=== PATIENT | female | born 2000 | race Caucasian/White ===

== ENCOUNTER 2022-04-28 08:46 | Outpatient (REF) | payer OTHER, SELFPAY ==
[2022-04-28 18:11] LABS: CT PCR DETECTED (Not Detect.); NG PCR NOT DETECTED (Not Detect.)
[2022-04-29 10:13] LABS: BV Int Neg Control Negative (Negative); BV Int Pos Control Positive (Positive)
== END 2022-04-28 08:47 | disposition home or self-care (01) ==
LOC: HO.LNP 08:46
PROVIDERS: Visit Provider Advanced Practice Midwife
DX: Z01.419 Encounter for gynecological examination (general) (routine) without abnormal findings (principal)
CPT/HCPCS: 87480; 87491; 87510; 87591; 87660; 88142

== ENCOUNTER 2022-08-09 11:08 | Outpatient (REF) | payer OTHER, SELFPAY ==
[2022-08-09 14:58] LABS: CT PCR NOT DETECTED (Not Detect.); NG PCR NOT DETECTED (Not Detect.)
== END 2022-08-09 11:09 | disposition home or self-care (01) ==
LOC: HO.LNP 11:08
PROVIDERS: PCP Internal Medicine; Visit Provider Advanced Practice Midwife
DX: Z20.2 Contact with and (suspected) exposure to infections with a predominantly sexual mode of transmission (principal)
CPT/HCPCS: 0353U

== ENCOUNTER 2023-05-26 09:50 | Outpatient (AMB) | payer OTHER, SELFPAY ==
--- NOTE | 2023-05-26 10:30 | MHC.OFFVIS ---
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 Doing well with no concerns. She tries to eat healthy and stays active with exercise. Regular monthly menses-on Apri. Currently is sexually active. She denies vaginal itching and irritation. STI screening offered; she accepts. Declines bloodwork. Denies family history of ovarian or colon cancer. Mother with a history of breast cancer. She believes she is BRCA2 negative. History of CIN1/HPV positive. She denies any contraindications to control such as: migraines with aura, history of DVT or pulmonary emboli, high blood pressure, liver disease, thrombolic disorders, Lupus, +FATOU, breast cancer, or smoking. [facility] Medical History LGSIL on Pap smear of cervix Dysmenorrhea in adolescent Surgical History No pertinent past surgical history Family History Father HTN (hypertension) Diabetes mellitus Substance use disorder Mental health disorder Mother Breast cancer, Onset Age: 43 H/O mastectomy History of chemotherapy Brother Medical history non-contributory Social History (Updated 05/26/23 @ 10:57 by Dorys Arrington CNM) Household Members: Family Housing: House Alcohol intake: current Alcohol intake frequency: holidays/special occasions only Patient Tobacco Use Status: Never used Tobacco e-Cigarette/Vaping Use: Never Used service: No Current occupational status: employed and student 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 Sexual orientation: Straight/Heterosexual Gender identity: Female Female Reproductive History Menstrual Age of Menarche: 11 Duration of menses: 6-7 days Date of last menstrual period: 05/03/23 control method: pills Total pregnancies: 0 Date of last pap smear: 04/29/22 (LGSIL CIN1) History of abnormal pap smear: Yes Review of Systems Const All systems reviewed & are unremarkable except as noted in HPI and below Reports as per HPI Eyes Reports no additional complaints ENT Reports no additional complaints Card Reports no additional complaints Resp Reports no additional complaints GI Reports as per HPI and Reports no additional complaints Reports as per HPI Musc Reports no additional complaints Skin/Breast Reports as per HPI Neuro Reports no additional complaints Psych Reports no additional complaints Endo Reports no additional complaints Ryder/Lymph Reports no additional complaints Aller/Immun Reports no additional complaints Physical Exam Vital Signs: Last Vital Signs BP 118/72 05/26/23 10:32 BMI result Body Mass Index 27.6 Const General: cooperative, healthy appearing, no acute distress, well developed and alert Orientation/consciousness: patient oriented x3 HEENT Head: Yes normal to inspection Eyes General: appearance normal, both eyes and all related structures Neck Neck: Yes normal visual inspection Thyroid: Thyroid normal Chest Chest palpation & inspection: normal inspection of the chest and other (no puckering, dimpling, peau de orange, retraction, discharge, masses) Breast/axilla inspection: normal inspection of the breasts Breast/axilla palpation: normal palpation of the breasts Resp Effort & Inspection: normal respiratory effort GI Inspection: Yes normal to inspection Palpation (GI): Soft to palpation Rectal Exam - Female: deferred General: Yes bladder normal to palpation External Female Exam: normal external appearance and normal appearance of the urethra Speculum Exam - Vagina: normal appearance of the vagina, normal palpation and normal vaginal discharge Speculum Exam - Cervix: normal appearance of the cervix, normal palpation and Other cervical findings present (Bled with Pap) Bimanual exam- vagina & uterus: normal bimanual exam, normal palpation, uterine size normal, bladder normal to palpation, normal palpation and non-tender Bimanual Exam- Adnexa, other: no masses Skin General skin exam: no rashes or lesions noted Rashes: no rashes Neuro General: patient oriented x3 Cognition (Neuro): normal cognition Extrem General: Yes normal to inspection Psych Attitude: cooperative Thought process: Normal thought process present Assessment & Plan Assessment & Plan (1) Encounter for well woman exam with routine gynecological exam: Code(s): Z01.419 - Encounter for gynecological examination (general) (routine) without abnormal findings (2) History of abnormal cervical Pap smear: Code(s): Z87.42 - Personal history of other diseases of the female genital tract Plan Discussed: Current recommendations for pap smears per ASCCP guidelines. Await results today for plan of care. Breast awareness and periodic breast exams. Discussed bracket testing offered referral to Dr. Castaneda, advised to reach out on patient portal if she desires to have the referral completed. Maintain a healthy lifestyle including a well balanced diet and routine exercise. control hormone use warnings: go to ER if and loss of vision, blindness, severe headache, chest pain or difficulty breathing, severe abdominal pain, or any pain or swelling in an extremity. All of her questions and concerns were addressed to the best of my ability. 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 Orders: Orders CT NG by PCR Today Z20.2 - Contact with and (suspected) exposure to infections with a predominantly sexual mode of transmission Pap Smear Today Z12.4 - Encounter for screening for malignant neoplasm of cervix Medications: Refilled norgestimate-ethinyl estradiol 0.25-35 mg-mcg (Estarylla) 1 tab PO DAILY 84 tabs 4RF L70.9 - Acne, unspecified, N94.6 - Dysmenorrhea, unspecified Coding Level of Care Code Est Pt Prev Care 18-39y(33783) Diagnoses Encounter for well woman exam with routine gynecological exam Z01.419 History of abnormal cervical Pap smear Z87.42
[2023-05-26 10:32] VITALS: BP 118/72; BMI 27.6
== END 2023-05-26 11:17 | disposition home or self-care (01) ==
PROVIDERS: Visit Provider Advanced Practice Midwife
DX: Z01.419 Encounter for gynecological examination (general) (routine) without abnormal findings (principal); Z87.42 Personal history of other diseases of the female genital tract
CPT/HCPCS: 99395

== ENCOUNTER 2023-05-26 09:50 | Outpatient (REF) | payer OTHER, SELFPAY ==
[2023-05-26 14:36] LABS: CT PCR NOT DETECTED (Not Detect.); NG PCR NOT DETECTED (Not Detect.)
[2023-06-03 03:48] LABS: HPV mRNA E6/E7 rflx Not Detected (Not Detected)
== END 2023-05-26 09:51 | disposition home or self-care (01) ==
LOC: HO.LNP 09:50
PROVIDERS: Visit Provider Advanced Practice Midwife
DX: Z01.419 Encounter for gynecological examination (general) (routine) without abnormal findings (principal); Z20.2 Contact with and (suspected) exposure to infections with a predominantly sexual mode of transmission; Z87.42 Personal history of other diseases of the female genital tract
CPT/HCPCS: 0353U; 87624; 88142

== ENCOUNTER 2023-07-15 11:16 | Outpatient (AMB) | payer OTHER, SELFPAY ==
--- NOTE | 2023-07-15 11:30 | MHC.PC.OV ---
Vital Signs 07/15/23 11:31 Height 5 ft 5 in Weight 167 lb BMI 27.8 BP 110/72 Blood Pressure Location Lt brachial Position Sitting Pulse 98 Pulse Source Pulse Oximeter Pulse Oximetry (%) 98 Oxygen Delivery Method Room Air Intake Visit Reasons: Constipation Intake Note: Pt is here today c/o constipation on and off Allergies No Known Allergies Allergy (Verified 07/15/23 11:37) Medication List - Last Reconciled 07/15/23 by Jess Bennett MD norgestimate-ethinyl estradiol 0.25-35 mg-mcg (Estarylla) 1 tab PO DAILY Tobacco use date assessed: 07/15/23 Dental Screening Dental Screen Date: 07/15/23 Did you have a dental visit in the last 12 months?: Yes Did you have a dental problem in the last 6 months where you did not have access to dental care?: No Was dental information given to patient?: Patient has dentist HPI Constipation HPI Details 43-year-old lady here today complaining of intermittent episodes of constipation, passing hard stool , no blood in stool seen. Has been present now for the last several weeks. States that she has been drinking plenty of fluids, and has increased dietary fiber intake. [facility] Medical History (Updated 07/17/23 @ 22:33 by Jess Bennett MD) Constipation LGSIL on Pap smear of cervix Dysmenorrhea in adolescent Surgical History No pertinent past surgical history Family History Father HTN (hypertension) Diabetes mellitus Substance use disorder Mental health disorder Mother Breast cancer, Onset Age: 43 H/O mastectomy History of chemotherapy Brother Medical history non-contributory Social History Household Members: Family Housing: House Alcohol intake: current Alcohol intake frequency: holidays/special occasions only Patient Tobacco Use Status: Never used Tobacco e-Cigarette/Vaping Use: Never Used service: No Current occupational status: employed and student 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 1. Little interest or pleasure in doing things: not at all 2. Feeling down, depressed, or hopeless: not at all 3. Trouble falling or staying asleep, or sleeping too much: not at all 4. Feeling tired or having little energy: not at all 5. Poor appetite or overeating: not at all 6. Feeling bad about yourself - or that you are a failure or have let yourself or your family down: not at all 7. Trouble concentrating on things, such as reading the newspaper or watching television: not at all 8. Moving or speaking so slowly that other people could have noticed. Or the opposite - being so fidgety or restless that you have been moving around a lot more than usual: not at all 9. Thoughts that you would be better off or of hurting yourself in some way: not at all Total score: 0 Depression Screening Interpretation: Negative Depression Screening Done: Yes 95818 - PHQ-9 Billing: Yes Source: Developed by Drs. Zeke Zimmer, Yeni Tello, Campos Travis and colleagues, with an educational kvng from [employer]. Thrive Questionnaire Date Thrive assessed: 07/15/23 I am a: Patient What is your living situation today?: I have a steady place to live Within the past 12 months, did the food you bought not last and you didn't have the money to get more?: Never true Within the past 12 months, did you worry whether your food would run out before you got money to buy more?: Never true Do you have trouble paying for medicines?: No Do you have trouble getting transportation to medical appointments?: No Do you have trouble paying your heating and electricity bill?: No Do you have trouble taking care of your child, family member or friend?: No Do you have trouble with day-to-day activities such as bathing, preparing meals, shopping, managing finances, etc.?: No Are you currently unemployed and looking for a job?: No Are you interested in more education?: No THRIVE Score: 0 AUDIT C Alcohol Use Questionnaire (AUDIT-C) 1. How often do you have a drink containing alcohol?: Monthly or less 2. How many drinks containing alcohol do you have on a typical day when you are drinking?: 1 or 2 3. How often do you have six or more drinks on one occasion?: Never Total Score: 1 AMY-7 AMB Questionnaire AMY-7 Date AMY - 7 assessed: 07/15/23 Feeling nervous, anxious, or on edge: 0 = Not at all Not being able to stop or control worryin = Not at all Worrying too much about different things: 0 = Not at all Trouble relaxin = Not at all Being so restless that it is hard to sit still: 0 = Not at all Becoming easily annoyed or irritable: 0 = Not at all Feeling afraid as if something awful might happen: 0 = Not at all Total AMY-7 score (0-4 normal; 5-9 mild; 10-14 moderate; 15-21 severe): 0 Source: Developed by Drs. Zeke Zimmer, Yeni Tello, Campos Travis and colleagues, with an educational kvng from [employer]. AMY-7 Assessment Billing AMY-7 Assessment Tool: AMY-7 Assessment 85971 Review of Systems Const All systems reviewed & are unremarkable except as noted in HPI and below Reports as per HPI Eyes Reports no additional complaints ENT Reports no additional complaints Card Reports no additional complaints Resp Reports no additional complaints GI Reports as per HPI Reports as per HPI Musc Reports no additional complaints Skin/Breast Reports as per HPI Neuro Reports no additional complaints Psych Reports no additional complaints Endo Reports no additional complaints Ryder/Lymph Reports no additional complaints Aller/Immun Reports no additional complaints Physical exam (Primary Care) Vital Signs: Last Vital Signs Pulse 98 07/15/23 11:31 BP 110/72 07/15/23 11:31 Pulse Ox 98 07/15/23 11:31 Oxygen Delivery Method Room Air 07/15/23 11:31 BMI result Body Mass Index 27.8 Tobacco/Smoking Status: Tobacco use Status Tobacco use date assessed 07/15/23 07/15/23 11:35 Patient Tobacco Use Status Never used Tobacco 07/15/23 11:35 e-Cigarette/Vaping Use Never Used 07/15/23 11:35 PHQ-9: PHQ-9 Score PHQ-9: Total score 0 07/15/23 11:40 Depression Screening Interpretation: Negative Thrive Assessment: Date of Thrive Assessment Date Thrive assessed 07/15/23 07/15/23 11:39 Const General: healthy appearing, comfortable and no acute distress Nutritional Appearance: average body habitus Orientation/consciousness: patient oriented x3 HENMT Head: Yes normal to inspection Ears: external ears normal General nose exam: Normal external nose present Face and sinus: Yes face symmetric Mouth: Normal oral and palatal mucosa present and moist mucous membranes Neck Neck: Yes full ROM, Yes no lymphadenopathy and Yes supple Thyroid: Thyroid normal Resp Effort & Inspection: normal respiratory effort and able to speak in complete sentences Auscultation: clear to auscultation bilaterally Cardio Palpation: normal PMI Rate: regular rate Rhythm: regular rhythm Heart sounds: S1 normal heart sound present and S2 normal heart sound present Peripheral pulses: Peripheral pulses 2+ throughout GI Inspection: Yes normal to inspection Palpation (GI): Soft to palpation, nontender, no guarding and no masses Auscultation: normal bowel sounds General: Yes no CVA tenderness and Yes deferred Back/Spine/Pelvis Back: no CVA tenderness and No back tenderness Skin General skin exam: no rashes or lesions noted Neuro General: patient oriented x3, gait normal, tone normal, moves all extremities, Normal light touch and pain sensation and CN's II-XI intact bilaterally Extrem General: Yes normal to inspection, Yes full ROM, Yes no joint enlargement, Yes no pedal edema, Yes no calf tenderness and Yes normal gait Psych Appearance: grossly normal Mental Status: mental status grossly normal Speech and movement: Normal speech and movement present Affect: normal affect Attitude: cooperative Thought process: Normal thought process present Thought content: Normal thought content present Assessment and Plan Assessment & Plan (1) Constipation: Code(s): K59.00 - Constipation, unspecified Qualifiers: Constipation type: unspecified constipation type Qualified Code(s): K59.00 - Constipation, unspecified Plan: Prescription sent for docusate sodium 100 mg per capsule to take 1-2 capsules once a day., continue with increase dietary fiber intake, adequate hydration and regular exercise. May take an occasional Senokot S if after 2 days no regular bowel movements. Call if no improvement of symptoms Orders: Orders Complete Blood Count Auto Diff 07/15/23 K59.00 - Constipation, unspecified, Z13.1 - Encounter for screening for diabetes mellitus, Z13.220 - Encounter for screening for lipoid disorders, Z83.3 - Family history of diabetes mellitus, Z83.49 - Family history of other endocrine, nutritional and metabolic diseases Vitamin D 25-OH Total 07/15/23 K59.00 - Constipation, unspecified, Z13.1 - Encounter for screening for diabetes mellitus, Z13.220 - Encounter for screening for lipoid disorders, Z83.3 - Family history of diabetes mellitus, Z83.49 - Family history of other endocrine, nutritional and metabolic diseases Lipid Panel 07/15/23 K59.00 - Constipation, unspecified, Z13.1 - Encounter for screening for diabetes mellitus, Z13.220 - Encounter for screening for lipoid disorders, Z83.3 - Family history of diabetes mellitus, Z83.49 - Family history of other endocrine, nutritional and metabolic diseases Basic Metabolic Panel Fasting 07/15/23 K59.00 - Constipation, unspecified, Z13.1 - Encounter for screening for diabetes mellitus, Z13.220 - Encounter for screening for lipoid disorders, Z83.3 - Family history of diabetes mellitus, Z83.49 - Family history of other endocrine, nutritional and metabolic diseases TSH reflex Free T4 07/15/23 K59.00 - Constipation, unspecified, Z13.1 - Encounter for screening for diabetes mellitus, Z13.220 - Encounter for screening for lipoid disorders, Z83.3 - Family history of diabetes mellitus, Z83.49 - Family history of other endocrine, nutritional and metabolic diseases Medications: New docusate sodium 100 mg PO DAILY 90 tabs 0RF Constipation Coding Level of Care Code Est Pt Level 3 (77710) Diagnoses Constipation, unspecified constipation type K5. Constipation type: unspecified constipation type Additional Codes AMY-7 Assessment Billing - AMY-7 Assessment Tool: AMY-7 Assessment 81433 ([id number])
[2023-07-15 11:31] VITALS: BP 110/72; PULSE 98; O2SAT 98; BMI 27.8
== END 2023-07-15 12:07 | disposition home or self-care (01) ==
PROVIDERS: PCP Internal Medicine; Visit Provider Internal Medicine
DX: K59.00 Constipation, unspecified (principal)
CPT/HCPCS: 99213

== ENCOUNTER 2023-07-15 11:48 | Outpatient (REF) | payer OTHER, SELFPAY ==
[2023-07-15 13:11] LABS: MANUAL DIFF FLAG NO
[2023-07-15 13:26] LABS: Basophils Percent Auto 0.3 % (0-2); Eosinophils Absolute Auto 0.3 X10*3/uL (0.0-0.4); Eosinophils Percent Auto 3.9 % (0-4); Hematocrit 40.9 % (37.0-47.0); Hemoglobin 13.3 g/dl (12.0-16.0); Lymphocytes Absolute Auto 2.5 X10*3/uL (1.2-4.9); Lymphocytes Percent Auto 38.4 % (20-40); Mean Corpuscular HGB Conc 32.5 g/dl (31.0-35.0); Mean Corpuscular Hemoglobin 28.9 pg (27.0-33.0); Mean Corpuscular Volume 88.9 fL (80.0-98.0); Monocytes Absolute Auto 0.5 X10*3/uL (0.1-1.2); Neutrophils Absolute Auto 3.2 x10*3/uL (2.0-8.3); Neutrophils Percent Auto 49.4 % (45-73); Platelet Count 227 X10*3/uL (160-400); Red Cell Distribution Width 12.9 % (11.0-16.0); White Blood Count 6.5 X10*3/uL (4.8-10.8)
[2023-07-15 14:15] LABS: Anion Gap 11 (12-20); Blood Urea Nitrogen 9 mg/dL (9-16); Calcium 9.1 mg/dL (8.4-10.2); Carbon Dioxide 24 mmol/L (22-29); Chloride 107 mmol/L (96-108); Cholesterol 167 mg/dL (<200); Estimated Glomerular Filt Rate > 60; Glucose Fasting 89 mg/dL (60-99); HDL Cholesterol 71 mg/dL (>40); LDL Cholesterol Calculated 77 mg/dL (<100); Potassium 3.9 mmol/L (3.3-5.1); Sodium 138 mmol/L (135-145); Triglycerides 95 mg/dL (<150)
[2023-07-15 14:35] LABS: TSH reflex Free T4 4.55 uIU/mL (0.32-4.0); Vitamin D 25-OH Total 80.5 ng/mL (>30)
== END 2023-07-15 11:49 | disposition home or self-care (01) ==
LOC: HO.HMGCLDS 11:48
PROVIDERS: PCP Internal Medicine; Visit Provider Internal Medicine
DX: Z13.220 Encounter for screening for lipoid disorders (principal); Z13.1 Encounter for screening for diabetes mellitus; K59.00 Constipation, unspecified; Z83.3 Family history of diabetes mellitus; Z83.49 Family history of other endocrine, nutritional and metabolic diseases
CPT/HCPCS: 36415; 80048; 80061; 82306; 84439; 84443; 85025

== ENCOUNTER → 2024-07-24 14:53 | Outpatient (BNVA) | payer OTHER, SELFPAY | PROVIDERS: PCP Internal Medicine; Visit Provider Advanced Practice Midwife ==

== ENCOUNTER 2024-08-23 08:08 | Outpatient (REF) | payer OTHER, SELFPAY ==
--- OUTSIDE RECORDS SUMMARY | 2024-08-23 08:17 | XMS_ITS | Clinical Summary ---
Author Organization [facility] Address [address] [place] [address] Care Team Providers Care Grid Inspector Name Role Phone Pcp, No Primary Care Provider [phone] Social History Tobacco Use Types Packs/Day Years Used Date Smoking Tobacco: Never Assessed Comments Unknown Sex and Gender Information Value Date Recorded Sex Assigned at Not on file Legal Sex Female 9:24 PM EST Gender Identity Not on file Sexual Orientation Not on file Plan of Treatment Health Maintenance Due Date Last Done Comments Depression: Screening Annually using PHQ-2/9 in Adults 18 yrs or above (or HM Modifier)([facility]) 2018 Hepatitis C Virus Infection in Adolescents and Adults: Screening (or Modifier) ([facility]) 2018 SDOH Screening Reminder: Annually for all adults ([facility]) 2018 Tobacco Smoking Cessation: i n Adults excluding Women: Behavioral and Pharmacotherapy Interventions ([facility]) 2018 Lipid Screening: Once for Women aged 20 to 45 yrs ([facility]) 2020 Cervical Cancer Screenin-65 yrs of age (or Modifier) 2021 Cervical Cancer Screening: Pap every 3 yrs pts age 21-65 2021 Cervical Cancer: Pap Screening with Modifier timing ([facility]) 2021 Cervical Cancer: hrHPV alone or with cotesting Pap for Pts 30-65yrs screening every 5yrs ([facility]) 2021 DTaP/Tdap/Td Vaccines ([facility]) (7 - Td or Tdap) 12/08/2021 12/09/2011, 07/08/2004, 12/11/2001, Additional history exists Flu Vaccination: Yearly for ages 18mos through 64 years (or Modifier)([facility]) 01/12/2024 COVID-19 Vaccine Screening: Initial Series and Booster Status ([facility]) (2023- season) 2024 Zoster/Shingles Vaccine Series Screening: Adults aged 18+ yrs (or HM Modifiers)([facility]) (1 of 2) 2050 09/26/2007, 06/15/2001 Pneumococcal Vaccination Screening: Pts 0-19 & 19-64 yrs of age ([facility]) Aged Out 01/24/2001, 2000, 2000 No longer eligible based on patient's age to complete this topic Medical Devices Not on file Insurance [facility] Care Teams Grid Inspector Relationship Specialty Start Date End Date Pcp, Stephanie PCP - General Family Medicine 06/30/21
[2024-08-23 10:30] LABS: Anion Gap 11 (12-20); Blood Urea Nitrogen 12 mg/dL (9-16); Calcium 9.1 mg/dL (8.4-10.2); Carbon Dioxide 21 mmol/L (22-29); Chloride 112 mmol/L (96-108); Estimated Glomerular Filt Rate > 60; Glucose Fasting 97 mg/dL (60-99); Potassium 3.9 mmol/L (3.3-5.1); Sodium 140 mmol/L (135-145)
[2024-08-23 10:48] LABS: Free T4 (Free Thyroxine) 0.99 ng/dL (0.71-1.85); Thyroid Stimulating Hormone 6.13 uIU/mL (0.32-4.0)
[2024-08-25 05:23] LABS: Thyroid Peroxidase Antibodies <1 IU/mL (<9)
== END 2024-08-23 08:09 | disposition home or self-care (01) ==
LOC: HO.HMGCLDS 08:08
PROVIDERS: PCP Internal Medicine; Visit Provider Internal Medicine
DX: K59.00 Constipation, unspecified (principal); R79.89 Other specified abnormal findings of blood chemistry
CPT/HCPCS: 36415; 80048; 84439; 84443; 86376

== ENCOUNTER 2024-08-24 11:40 | Outpatient (AMB) | payer OTHER, SELFPAY ==
--- NOTE | 2024-08-24 11:41 | AM.OFFWIN_ITS ---
Intake Vital Signs 08/24/24 11:44 Weight 157 lb BP 122/80 Blood Pressure Location Lt brachial Position Sitting Pulse 111 H Pulse Source Pulse Oximeter Pulse Oximetry (%) 100 Oxygen Delivery Method Room Air Intake Visit Reasons: EP fatigue, constipation, eczema on hands Intake Note: Patient here for fatigue and constipation that has been going on for over 2 years. Patient Tobacco Use Status: Never used Tobacco Allergies No Known Allergies Allergy (Verified 08/24/24 11:44) Do you need a note to return to daycare/school/sports/work: No HPI HPI Comments History of Present Illness Details This is a 24-year-old female who presented to the walk-in clinic for follow-up on lab results. She is a patient of Dr. Bennett. She has been complaining of chronic constipation for the past 2 years. She states she has about 1-2 bowel movements weekly. She states her bowel movements are small and hard when she does have bowel movements. She denies any melena or hematochezia. She states she does develop abdominal discomfort in between her bowel movements but denies any nausea/vomiting. Patient has tried increased fiber including fiber rich foods and psyllium husk, increased hydration/fluid intake, increase physical activity, as well as multiple bzeh-fms-xkojssg medications such as docusate, senna, etc. Patient was noted to have an elevated TSH in 07/2023 but her PCP wanted to watch/monitor prior to starting medications. She had follow- up labs yesterday, which showed an increasing TSH. She has an appointment on 09/25/2024 for follow-up on chronic constipation. Patient presented to the walk-in clinic today hoping to get started on thyroid medications. [facility] Medical History (Updated 08/08/24 @ 12:32 by Jess Bennett MD) Elevated TSH Constipation LGSIL on Pap smear of cervix Dysmenorrhea in adolescent Surgical History No pertinent past surgical history Family History Father HTN (hypertension) Diabetes mellitus Substance use disorder Mental health disorder Mother Breast cancer, Onset Age: 43 H/O mastectomy History of chemotherapy Brother Medical history non-contributory Social History Household Members: Family Housing: House Alcohol intake: current Alcohol intake frequency: holidays/special occasions only Patient Tobacco Use Status: Never used Tobacco e-Cigarette/Vaping Use: Never Used service: No Current occupational status: employed and student 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 Sexual orientation: Straight/Heterosexual Gender identity: Female Cognitive needs: No Hearing needs: No Vision needs: Yes Female Reproductive History Menstrual Age of Menarche: 11 Review of Systems Const All systems reviewed & are unremarkable except as noted in HPI and below Reports no additional complaints Eyes Reports no additional complaints ENT Reports no additional complaints Card Reports no additional complaints Resp Reports no additional complaints GI Reports no additional complaints Reports no additional complaints Musc Reports no additional complaints Skin/Breast Reports system reviewed and no additional complaints, except as documented Neuro Reports no additional complaints Psych Reports no additional complaints Endo Reports no additional complaints Ryder/Lymph Reports no additional complaints Aller/Immun Reports no additional complaints Physical Exam Vital Signs: Last Vital Signs Pulse 111 H 08/24/24 11:44 BP 122/80 08/24/24 11:44 Pulse Ox 100 08/24/24 11:44 Oxygen Delivery Method Room Air 08/24/24 11:44 Const Other: Vital signs reviewed. Constitutional: Non-toxic appearing. No acute distress. Well-developed and well-nourished. HEENT: Normocephalic and atraumatic. Skin: Warm and dry. No rashes or lesions noted. Neck: Full and painless range of motion. No cervical lymphadenopathy. Cardio: Regular rate and rhythm. No murmurs, gallops, or rubs. No lower extremity edema. No JVD. Pulmonary: No respiratory distress. No accessory muscle usage. Clear to auscultation bilaterally without wheezing, crackles, or rhonchi. Gastrointestinal: Soft, nontender, and nondistended in all 4 quadrants. Normoactive bowel sounds in all 4 quadrants. Musculoskeletal: Normal range of motion in joints throughout the body. No deformity or other signs of injury. Neuro: Alert and oriented x4. Cranial nerves 2-12 grossly intact. No focal deficits appreciated. Psych: Normal mood and affect. Assessment & Plan Assessment & Plan (1) Elevated TSH: Code(s): R79.89 - Other specified abnormal findings of blood chemistry (2) Chronic constipation: Code(s): K59.09 - Other constipation Plan This is a 24-year-old female who presented to the walk-in clinic for follow-up on lab results and chronic constipation. Patient was found to have an elevated TSH to 6.13, which is increased from 4.55 in 07/2023. Patient was hoping to get started on thyroid medications today. I explained to the patient that we do not typically start chronic medication such as levothyroxine at the walk-in clinic and this would need to be discussed with her primary care physician. She has an appointment with her primary care physician on 09/25/2024; however, this is for follow-up on chronic constipation rather than lab review. We scheduled her a sooner telehealth appointment with her primary care physician on 09/07/2024 for lab review and she was encouraged to bring up her concerns to her PCP at that appointment. She was instructed to continue with increased fiber, increase hydration/fluid, increased physical activity, as well as ebsy-jsh-ieldlzt medications for severe constipation. She was advised to proceed directly to the emergency room if she were to develop obstipation, nausea/vomiting, or abdominal distention. Patient verbalized understanding and is agreeable with the plan. Coding Level of Care Code Est Pt Level 3 (67544) Diagnoses Elevated TSH R79.89 Chronic constipation K59.09
[2024-08-24 11:44] VITALS: BP 122/80; PULSE 111; O2SAT 100
== END 2024-08-24 12:19 | disposition home or self-care (01) ==
PROVIDERS: PCP Internal Medicine; Visit Provider Physician Assistant Medical
DX: R79.89 Other specified abnormal findings of blood chemistry (principal); K59.09 Other constipation

== ENCOUNTER 2024-09-07 08:12 | Outpatient (AMB) | payer OTHER, SELFPAY ==
--- NOTE | 2024-09-07 08:10 | MHC.PC.OV ---
Intake Visit Reasons: lab review Intake Note: Pt is having a telehealt visit for her lab results Allergies No Known Allergies Allergy (Verified 09/07/24 08:33) Medication List - Last Reconciled 09/07/24 by Jess Bennett MD etonogestrel-ethinyl estradiol 0.12-0.015 mg/24 hr (NuvaRing) 1 vag ring vaginal Q4W 3 weeks Tobacco use date assessed: 09/07/24 Dental Screening Dental Screen Date: 09/07/24 Did you have a dental visit in the last 12 months?: Yes Did you have a dental problem in the last 6 months where you did not have access to dental care?: No Was dental information given to patient?: Patient has dentist HPI lab review HPI Details 24-year-old lady here today for follow-up via telehealth. She has been having irregular bowel movements, mainly constipation over the last several months, feeling tired all the time, and dry skin in both hands, positive family history of thyroid disorder. Had recent fasting labs done which showed higher TSH as compared to last check, with free T4 low normal limits.. [facility] Medical History Elevated TSH Constipation LGSIL on Pap smear of cervix Dysmenorrhea in adolescent Surgical History No pertinent past surgical history Family History Father HTN (hypertension) Diabetes mellitus Substance use disorder Mental health disorder Mother Breast cancer, Onset Age: 43 H/O mastectomy History of chemotherapy Brother Medical history non-contributory Social History Household Members: Family Housing: House Alcohol intake: current Alcohol intake frequency: holidays/special occasions only Patient Tobacco Use Status: Never used Tobacco e-Cigarette/Vaping Use: Never Used service: No Current occupational status: employed and student 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 1. Little interest or pleasure in doing things: not at all 2. Feeling down, depressed, or hopeless: not at all 3. Trouble falling or staying asleep, or sleeping too much: not at all 4. Feeling tired or having little energy: not at all 5. Poor appetite or overeating: not at all 6. Feeling bad about yourself - or that you are a failure or have let yourself or your family down: not at all 7. Trouble concentrating on things, such as reading the newspaper or watching television: not at all 8. Moving or speaking so slowly that other people could have noticed. Or the opposite - being so fidgety or restless that you have been moving around a lot more than usual: not at all 9. Thoughts that you would be better off or of hurting yourself in some way: not at all Total score: 0 Depression Screening Interpretation: Negative Depression Screening Done: Yes 37907 - PHQ-9 Billing: Yes Source: Developed by Drs. Zeke Zimmer, Yeni Tello, Campos Travis and colleagues, with an educational kvng from [employer]. Thrive Questionnaire Date Thrive assessed: 09/07/24 I am a: Patient What is your living situation today?: I have a steady place to live Within the past 12 months, did the food you bought not last and you didn't have the money to get more?: Never true Within the past 12 months, did you worry whether your food would run out before you got money to buy more?: Never true Do you have trouble paying for medicines?: No Do you have trouble getting transportation to medical appointments?: No Do you have trouble paying your heating and electricity bill?: No Do you have trouble taking care of your child, family member or friend?: No Do you have trouble with day-to-day activities such as bathing, preparing meals, shopping, managing finances, etc.?: No Are you currently unemployed and looking for a job?: No Are you interested in more education?: No THRIVE Score: 0 AUDIT C Alcohol Use Questionnaire (AUDIT-C) 2. How many drinks containing alcohol do you have on a typical day when you are drinking?: 1 or 2 3. How often do you have six or more drinks on one occasion?: Never Total Score: 0 AMY-7 AMB Questionnaire AMY-7 Date AMY - 7 assessed: 09/07/24 Feeling nervous, anxious, or on edge: 0 = Not at all Not being able to stop or control worryin = Not at all Worrying too much about different things: 0 = Not at all Trouble relaxin = Not at all Being so restless that it is hard to sit still: 0 = Not at all Becoming easily annoyed or irritable: 0 = Not at all Feeling afraid as if something awful might happen: 0 = Not at all Total AMY-7 score (0-4 normal; 5-9 mild; 10-14 moderate; 15-21 severe): 0 Source: Developed by Drs. Zeke Zimmer, Yeni Tello, Campos Travis and colleagues, with an educational kvng from [employer]. AMY-7 Assessment Billing AMY-7 Assessment Tool: AMY-7 Assessment 22235 Review of Systems Const Reports fatigue, Denies headache(s), Denies malaise and Denies weakness Eyes Denies change in vision ENT Denies headache(s) Card Reports no additional complaints Resp Reports no additional complaints GI Reports as per HPI Reports no additional complaints Musc Reports no additional complaints Skin/Breast Reports as per HPI Neuro Denies headache(s) and Denies weakness Psych Reports no additional complaints Endo Reports fatigue Ryder/Lymph Reports no additional complaints Physical exam (Primary Care) Tobacco/Smoking Status: Tobacco use Status Tobacco use date assessed 09/07/24 09/07/24 08:11 Patient Tobacco Use Status Never used Tobacco 09/07/24 08:11 e-Cigarette/Vaping Use Never Used 09/07/24 08:11 PHQ-9: PHQ-9 Score PHQ-9: Total score 0 09/07/24 08:12 Depression Screening Interpretation: Negative Thrive Assessment: Date of Thrive Assessment Date Thrive assessed 09/07/24 09/07/24 08:12 Telehealth Telehealth Telehealth Platform: [facility] Location of provider rendering services: practice address Location of patient: address on file Patient Identification confirmed using: Name, : Yes Telehealth method: video Patient verbally consented to treatment: Yes Patient verbally consented to billing insurance company: Yes Patient informed of any privacy concerns related to visit: Yes Minutes spent on Phone/Video with Pt.: 15 Results Reviewed Results Reviewed: Name: Emilie Spangler Age/Sex: 24/F : 2000 Unit#: [id number] Attend Dr: Jess Bennett MD Re08/23/24 Status: DEP REF Location: [facility] Disch: SPEC : [id number] CHAYA: 08/23/24 STATUS: COMP REQ : [id number] RECD: 08/23/24-[address]: Jess Bennett MD COMP: 08/23/24 ENTERED: 08/23/[address]: ORDERED: Met Prof Fast, Free T4, TSH Test Result Flag Reference Sodium 140 135-145 mmol/L Potassium 3.9 3.3-5.1 mmol/L CL 112 H 96-108 mmol/L CO2 21 L 22-29 mmol/L Gap 11 L 12-20 BUN 12 9-16 mg/dL Creat 0.87 0.5-1.4 mg/dL eGFR > 60 Chronic Kidney Disease: Estimated GFR < 60 mL/min/1.73m2 Severe Kidney Disease: Estimated GFR < 15 mL/min/1.73m2 FBS 97 60-99 mg/dL CA 9.1 8.4-10.2 mg/dL Free T4 0.99 0.71-1.85 ng/dL TSH 3rd Gen. 6.13 H 0.32-4.0 uIU/mL Note: A sustained TSH level above 2.5 uIU/mL may warrant further investigation. TSH 3rd Generation ([facility]) Coding Level of Care Code Tele Est Pt Level 3 (78271) Diagnoses Elevated TSH R79.89 Additional Codes PHQ-9 - 45403 - PHQ-9 Billing: Yes ([id number]) AMY-7 Assessment Billing - AMY-7 Assessment Tool: AMY-7 Assessment 63144 ([id number]) Assessment & Plan Assessment & Plan (1) Elevated TSH: Code(s): R79.89 - Other specified abnormal findings of blood chemistry Category: Medical Plan: Started on low-dose levothyroxine 25 mcg per tablet to take once a day , take an hour before breakfast . Will repeat another TSH free T4 and thyroid peroxidase antibody in October Orders: Orders Thyroid Stimulating Hormone 10/27/24 R7. - Other specified abnormal findings of blood chemistry Free T4 (Free Thyroxine) 10/27/24 - Other specified abnormal findings of blood chemistry Thyroid Peroxidase Antibodies 10/27/24 - Other specified abnormal findings of blood chemistry Medications: New levothyroxine Take once a day in a.m. 1 hour before breakfast 25 mcg PO DAILY 30 tabs 2RF
== END 2024-09-07 09:38 | disposition home or self-care (01) ==
LOC: HO.HMCC 08:12
PROVIDERS: PCP Internal Medicine; Visit Provider Internal Medicine
DX: R79.89 Other specified abnormal findings of blood chemistry (principal)

== ENCOUNTER → 2024-09-07 08:12 | Outpatient (BNVA) | payer OTHER, SELFPAY | PROVIDERS: PCP Internal Medicine; Visit Provider Internal Medicine | DX: R94.6 Abnormal results of thyroid function studies (principal) | CPT/HCPCS: 96127 ==

== ENCOUNTER 2024-10-04 15:24 | Outpatient (AMB) | payer OTHER, SELFPAY ==
[2024-10-04 15:34] VITALS: BP 120/60; BMI 26.6
--- NOTE | 2024-10-04 15:34 | A.OFFVIS_ITS ---
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 Doing well with no tunnel elastic operator chainstitch concerns. Reports some breakthrough bleeding when using the ring [id number]-tq-gnlm cycling, has resolved. Currently is sexually active. She denies vaginal itching and irritation. STI screening offered; she accepts. She tries to eat healthy and stays active with exercise. Denies family history of ovarian or colon cancer. FH breast cancer-mother, BRCA negative. Last pap smear 2022, negative, history of KELLI 1/HPV+ 2021. [facility] Medical History Elevated TSH Constipation LGSIL on Pap smear of cervix Dysmenorrhea in adolescent Surgical History No pertinent past surgical history Family History Father HTN (hypertension) Diabetes mellitus Substance use disorder Mental health disorder Mother Breast cancer, Onset Age: 43 H/O mastectomy History of chemotherapy Brother Medical history non-contributory Social History Household Members: Family Housing: House Alcohol intake: current Alcohol intake frequency: holidays/special occasions only Patient Tobacco Use Status: Never used Tobacco e-Cigarette/Vaping Use: Never Used service: No Current occupational status: employed and student 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 Sexual orientation: Straight/Heterosexual Gender identity: Female Cognitive needs: No Hearing needs: No Vision needs: Yes Female Reproductive History Menstrual Age of Menarche: 11 control method: vaginal ring Total pregnancies: 0 Date of last pap smear: 05/26/23 (neg pap and hpv) History of abnormal pap smear: Yes (05/04 lgsil +hpv) History of STI: Yes (05/04 +chl) Review of Systems Const All systems reviewed & are unremarkable except as noted in HPI and below Reports as per HPI Eyes Reports no additional complaints ENT Reports no additional complaints Card Reports no additional complaints Resp Reports no additional complaints GI Reports as per HPI and Reports no additional complaints Reports as per HPI Musc Reports no additional complaints Skin/Breast Reports as per HPI Neuro Reports no additional complaints Psych Reports no additional complaints Endo Reports no additional complaints Ryder/Lymph Reports no additional complaints Aller/Immun Reports no additional complaints Physical Exam Vital Signs: Last Vital Signs BP 120/60 10/04/24 15:34 BMI result Body Mass Index 26.6 Const General: cooperative, healthy appearing, no acute distress, well developed and alert Orientation/consciousness: patient oriented x3 HEENT Head: Yes normal to inspection Eyes General: appearance normal, both eyes and all related structures Neck Neck: Yes normal visual inspection Thyroid: Thyroid normal Chest Chest palpation & inspection: normal inspection of the chest and other (no puckering, dimpling, peau de orange, retraction, discharge, masses) Breast/axilla inspection: normal inspection of the breasts Breast/axilla palpation: normal palpation of the breasts Resp Effort & Inspection: normal respiratory effort GI Inspection: Yes normal to inspection Palpation (GI): Soft to palpation Rectal Exam - Female: deferred General: Yes bladder normal to palpation External Female Exam: normal external appearance and normal appearance of the urethra Speculum Exam - Vagina: normal appearance of the vagina, normal palpation and normal vaginal discharge Speculum Exam - Cervix: normal appearance of the cervix, normal palpation and Other cervical findings present (Bled slightly with Pap) Bimanual exam- vagina & uterus: normal bimanual exam, normal palpation, uterine size normal, bladder normal to palpation, normal palpation and non-tender Bimanual Exam- Adnexa, other: no masses Skin General skin exam: no rashes or lesions noted Rashes: no rashes Neuro General: patient oriented x3 Cognition (Neuro): normal cognition Extrem General: Yes normal to inspection Psych Attitude: cooperative Thought process: Normal thought process present Assessment & Plan Assessment & Plan (1) Encounter for well woman exam with routine gynecological exam: Code(s): Z01.419 - Encounter for gynecological examination (general) (routine) without abnormal findings Category: Medical Plan Discussed: Current recommendations for pap smears per ASCCP guidelines. Pap obtained. Breast awareness and periodic breast exams. Maintain a healthy lifestyle including a well balanced diet and routine exercise. Continuous cycling use reviewed with the NuvaRing, breakthrough bleeding concerns and self-help measures, when to report back to the office for concerns. control hormone use warnings: go to ER if and loss of vision, blindness, severe headache, chest pain or difficulty breathing, severe abdominal pain, or any pain or swelling in an extremity. GC chlamydia and BV panel obtained, await results for plan of care. Patient verbalizes understanding and agrees to the plan of care. She was given opportunity to ask questions and all questions were answered to the best of my ability. RTO in one year for annual tunnel elastic operator chainstitch examination. This note is constructed using voice recognition software. While every effort has been made to ensure accuracy, metal cans supervisor errors may have been included. Orders: Orders Bacterial Vaginosis Panel Today Z20.2 - Contact with and (suspected) exposure to infections with a predominantly sexual mode of transmission CT NG by PCR Today Z20.2 - Contact with and (suspected) exposure to infections with a predominantly sexual mode of transmission Pap Smear Today Z01.419 - Encounter for gynecological examination (general) (routine) without abnormal findings Medications: Refilled etonogestrel-ethinyl estradiol 0.12-0.015 mg/24 hr (NuvaRing) Use one ring for 3 weeks, repeat the cycle and use continuously. No withdrawal week. 1 vag ring vaginal Q4W 3 weeks 5 ea 12RF Coding Level of Care Code Est Pt Prev Care 18-39y(79002) Diagnoses Encounter for well woman exam with routine gynecological exam Z01.419
--- OUTSIDE RECORDS SUMMARY | 2024-10-04 18:06 | XMS_ITS | Clinical Summary ---
Author Organization [facility] [place] [facility] [address] Address [address] [place] [address] Care Team Providers Care Revenue Research Analyst Name Role Phone Pcp, No Primary Care Provider [phone] Social History Tobacco Use Types Packs/Day Years [...] Adults 18 yrs or above (or HM Modifier)([facility]) 2000 Hepatitis C Virus Infection in Adolescents and Adults: Screening (or Modifier) ([facility]) 2018 SDOH Screening Reminder: Annually for all adults ([facility]) 2018 Tobacco Smoking Cessation: i n Adults excluding Women: Behavioral and Pharmacotherapy Interventions ([facility]) 2018 Lipid Screening: Once for Women aged 20 to 45 yrs ([facility]) 2020 Cervical Cancer Screenin-65 yrs of age (or Modifier) 2021 Cervical Cancer Screening: Pap every 3 yrs pts age 21-65 2021 Cervical Cancer: Pap Screening with Modifier timing ([facility]) 2021 Cervical Cancer: hrHPV alone or with cotesting Pap for Pts 30-65yrs screening every 5yrs ([facility]) 2021 DTaP/Tdap/Td Vaccines ([facility]) (7 - Td or Tdap) 12/08/2021 12/09/2011, 07/08/2004, 12/11/2001, Additional history exists COVID-19 Vaccine Screening: Initial Series and Booster Status ([facility]) (2023- season) 2024 Flu Vaccination: Yearly for ages 18mos through 64 years (or Modifier)([facility]) 01/11/2025 Zoster/Shingles Vaccine Series Screening: Adults aged 18+ yrs (or HM Modifiers)([facility]) (1 of 2) 2050 09/26/2007, 06/15/2001 Pneumococcal Vaccination Screening: Pts 0-19 & 19-49 yrs of age ([facility]) Aged Out 01/24/2001, 2000, 2000 No longer eligible based on patient's age to complete this topic Medical Devices Not on file Insurance [facility] Care Teams Revenue Research Analyst Relationship Specialty Start Date End Date Karthik, Stephanie PCP - General Family Medicine 06/30/21
== END 2024-10-04 16:18 | disposition home or self-care (01) ==
LOC: HO.HWS 15:24
PROVIDERS: PCP Internal Medicine; Visit Provider Advanced Practice Midwife
DX: Z01.419 Encounter for gynecological examination (general) (routine) without abnormal findings (principal)
CPT/HCPCS: 99395; 99459

== ENCOUNTER 2024-10-04 15:24 | Outpatient (REF) | payer OTHER, SELFPAY ==
--- OUTSIDE RECORDS SUMMARY | 2024-10-04 18:40 | XMS_ITS | Clinical Summary ---
Author Organization [facility] [employer] & [facility] lin Address [address] [place] [address] Care Team Providers Care Tinsel Machine Operator Name Role Phone Pcp, No Primary Care Provider [phone] Social History Tobacco Use Types Packs/Day Years [...] Adults 18 yrs or above (or HM Modifier)([facility]) 2000 Hepatitis C Virus Infection in Adolescents and Adults: Screening (or Modifier) ([facility]) 2018 SDOH Screening Reminder: Annually for all adults ([facility]) 2018 Tobacco Smoking Cessation: i n Adults excluding Women: Behavioral and Pharmacotherapy Interventions ([facility]) 2018 Lipid Screening: Once for Women aged 20 to 45 yrs ([facility]) 2020 Cervical Cancer Screenin-65 yrs of age (or Modifier) 2021 Cervical Cancer Screening: Pap every 3 yrs pts age 21-65 2021 Cervical Cancer: Pap Screening with Modifier timing ([facility]) 2021 Cervical Cancer: hrHPV alone or with cotesting Pap for Pts 30-65yrs screening every 5yrs ([facility]) 2021 DTaP/Tdap/Td Vaccines ([facility]) (7 - Td or Tdap) 12/08/2021 12/09/2011, 07/08/2004, 12/11/2001, Additional history exists COVID-19 Vaccine Screening: Initial Series and Booster Status ([facility]) (2023- season) 2024 Flu Vaccination: Yearly for ages 18mos through 64 years (or Modifier)([facility]) 01/11/2025 Zoster/Shingles Vaccine Series Screening: Adults aged 18+ yrs (or HM Modifiers)([facility]) (1 of 2) 2050 09/26/2007, 06/15/2001 Pneumococcal Vaccination Screening: Pts 0-19 & 19-49 yrs of age ([facility]) Aged Out 01/24/2001, 2000, 2000 No longer eligible based on patient's age to complete this topic Medical Devices Not on file Insurance [facility] Care Teams Tinsel Machine Operator Relationship Specialty Start Date End Date Karthik, Stephanie PCP - General Family Medicine 06/30/21
[2024-10-05 06:19] LABS: CT PCR NOT DETECTED (Not Detect.); NG PCR NOT DETECTED (Not Detect.)
[2024-10-05 11:22] LABS: Bacterial Vaginosis PCR NEGATIVE (Negative); Candida Group PCR NOT DETECTED (Not Detect); Candida glab krusei PCR NOT DETECTED (Not Detect); Trichomonas vaginalis PCR NOT DETECTED (Not Detect)
== END 2024-10-04 15:25 | disposition home or self-care (01) ==
LOC: HO.LAB 15:24
PROVIDERS: PCP Internal Medicine; Visit Provider Advanced Practice Midwife
DX: Z20.2 Contact with and (suspected) exposure to infections with a predominantly sexual mode of transmission (principal)
CPT/HCPCS: 81515; 87491; 87591

== ENCOUNTER 2024-10-04 16:16 | Outpatient (REF) | payer OTHER, SELFPAY | END 2024-10-04 16:17 | disposition home or self-care (01) | LOC: HO.LNP 16:16 | PROVIDERS: Visit Provider Advanced Practice Midwife | DX: Z01.419 Encounter for gynecological examination (general) (routine) without abnormal findings (principal) | CPT/HCPCS: 88175 ==

== ENCOUNTER 2024-10-29 08:01 | Outpatient (REF) | payer OTHER, SELFPAY ==
--- OUTSIDE RECORDS SUMMARY | 2024-10-29 08:05 | XMS_ITS | Clinical Summary ---
Author Organization [facility] [employer] & [facility] lin Address [address] [place] [address] Care Team Providers Care Oracle Database Manager Name Role Phone Pcp, No Primary Care Provider [phone] Social History Tobacco Use Types Packs/Day Years [...] Adults 18 yrs or above (or HM Modifier)([facility]) 2018 Hepatitis C Virus Infection in Adolescents and Adults: Screening (or Modifier) ([facility]) 2018 SDOH Screening Reminder: Annually for all adults ([facility]) 2018 Tobacco Smoking Cessation: i n Adults excluding Women: Behavioral and Pharmacotherapy Interventions ([facility]) 2018 Lipid Screening: Once for Women aged 20 to 45 yrs ([facility]) 2020 Cervical Cancer Screenin-65 yrs of age (or Modifier) 2021 Cervical Cancer Screening: Pap every 3 yrs pts age 21-65 2021 Cervical Cancer: Pap Screening with Modifier timing ([facility]) 2021 Cervical Cancer: hrHPV alone or with cotesting Pap for Pts 30-65yrs screening every 5yrs ([facility]) 2021 DTaP/Tdap/Td Vaccines ([facility]) (7 - Td or Tdap) 12/08/2021 12/09/2011, 07/08/2004, 12/11/2001, Additional history exists COVID-19 Vaccine Screening: Initial Series and Booster Status ([facility]) (2023- season) 2024 Flu Vaccination: Yearly for ages 18mos through 64 years (or Modifier)([facility]) 01/11/2025 Zoster/Shingles Vaccine Series Screening: Adults aged 18+ yrs (or HM Modifiers)([facility]) (1 of 2) 2050 09/26/2007, 06/15/2001 Pneumococcal Vaccination Screening: Pts 0-19 & 19-49 yrs of age ([facility]) Aged Out 01/24/2001, 2000, 2000 No longer eligible based on patient's age to complete this topic Medical Devices Not on file Insurance [facility] Care Teams Oracle Database Manager Relationship Specialty Start Date End Date Karthik, Stephanie PCP - General Family Medicine 06/30/21
[2024-10-29 11:10] LABS: Free T4 (Free Thyroxine) 1.04 ng/dL (0.71-1.85); Thyroid Stimulating Hormone 5.18 uIU/mL (0.32-4.0)
[2024-10-30 17:12] LABS: Thyroid Peroxidase Antibodies <1 IU/mL (<9)
== END 2024-10-29 08:02 | disposition home or self-care (01) ==
LOC: HO.HMGCLDS 08:01
PROVIDERS: PCP Internal Medicine; Visit Provider Internal Medicine
DX: R79.89 Other specified abnormal findings of blood chemistry (principal)
CPT/HCPCS: 36415; 84439; 84443; 86376

== ENCOUNTER 2024-11-13 07:57 | Outpatient (AMB) | payer OTHER, SELFPAY ==
--- NOTE | 2024-11-13 07:55 | MHC.PC.OV ---
Intake Visit Reasons: TH follow up Intake Note: Pt is having a telehealth visit to f/u thyroid labs Allergies No Known Allergies Allergy (Verified 11/13/24 08:19) Medication List - Last Reconciled 11/13/24 by Jess Bennett MD etonogestrel-ethinyl estradiol 0.12-0.015 mg/24 hr (NuvaRing) 1 vag ring vaginal Q4W 3 weeks levothyroxine 25 mcg PO DAILY Tobacco use date assessed: 11/13/24 Dental Screening Dental Screen Date: 11/13/24 Did you have a dental visit in the last 12 months?: Yes Did you have a dental problem in the last 6 months where you did not have access to dental care?: No Was dental information given to patient?: Patient has dentist HPI TH follow up HPI Details 24-year-old lady with history of elevated TSH, started on levothyroxine 25 mcg once a day on last visit, here today for follow-up. She states that she has been feeling better, with a peeling dry skin on hands starting to clear up. She also has noted improvement in her bowel movements, less constipated and overall feeling better than last check . Latest thyroid levels showed slightly elevated TSH with a free T4 within normal limit. Patient however would like to see if she can try a higher dose. [facility] Medical History Hypothyroidism Elevated TSH Constipation LGSIL on Pap smear of cervix Dysmenorrhea in adolescent Surgical History No pertinent past surgical history Family History Father HTN (hypertension) Diabetes mellitus Substance use disorder Mental health disorder Mother Breast cancer, Onset Age: 43 H/O mastectomy History of chemotherapy Brother Medical history non-contributory Social History Household Members: Family Housing: House Alcohol intake: current Alcohol intake frequency: holidays/special occasions only Patient Tobacco Use Status: Never used Tobacco e-Cigarette/Vaping Use: Never Used service: No Current occupational status: employed and student 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 Zeke Zimmer, Yeni Tello, Campos Travis and colleagues, with an educational kvng from [employer]. Review of Systems Const All systems reviewed & are unremarkable except as noted in HPI and below Card Denies chest pain, Denies rapid heart rate, Denies irregular heart rhythm and Denies dyspnea Resp Denies cough and Denies dyspnea Musc Reports no additional complaints Neuro Reports no additional complaints Endo Reports no additional complaints Physical exam (Primary Care) Tobacco/Smoking Status: Tobacco use Status Tobacco use date assessed 11/13/24 11/13/24 07:56 Patient Tobacco Use Status Never used Tobacco 11/13/24 07:56 e-Cigarette/Vaping Use Never Used 11/13/24 07:56 Thrive Assessment: Date of Thrive Assessment Date Thrive assessed 09/07/24 11/13/24 07:56 Telehealth Telehealth Telehealth Platform: [employer] Location of provider rendering services: practice address Location of patient: address on file Patient Identification confirmed using: Name, : Yes Telehealth method: video Patient verbally consented to treatment: Yes Patient verbally consented to billing insurance company: Yes Patient informed of any privacy concerns related to visit: Yes Minutes spent on Phone/Video with Pt.: 15 Coding Level of Care Code Tele Est Pt Level 4 (22769) Diagnoses Hypothyroidism E03.9 Assessment & Plan Assessment & Plan (1) Hypothyroidism: Code(s): E03.9 - Hypothyroidism, unspecified Category: Medical Plan: Doing better on levothyroxine 25 mcg daily but would like to see if she can go on a higher dose to see if her bowel movements are going to be fully regulated. Will increase levothyroxine to 50 mcg once a day a now in the morning before breakfast. Will see her back for follow-up in 3 months after checking thyroid levels again. Orders: Orders Free T4 (Free Thyroxine) 02/11/25 E03.9 - Hypothyroidism, unspecified Thyroid Stimulating Hormone 02/11/25 E03.9 - Hypothyroidism, unspecified Medications: New levothyroxine 50 mcg PO DAILY 90 tabs 1RF E03.9 - Hypothyroidism, unspecified Discontinued levothyroxine Take once a day in a.m. 1 hour before breakfast Discontinued Reason: Doctor's Order 25 mcg PO DAILY 30 tabs 2RF
--- OUTSIDE RECORDS SUMMARY | 2024-11-13 08:00 | XMS_ITS | Clinical Summary ---
Author Organization [facility] [employer] & [facility] lin Address [address] [facility] [address] [place] [address] Care Team Providers Care Dumper Name Role Phone Pcp, No Primary Care Provider [phone] Social History Tobacco Use Types Packs/Day Years [...] Adults 18 yrs or above (or HM Modifier)([facility]) 2018 Hepatitis C Virus Infection in Adolescents and Adults: Screening (or Modifier) ([facility]) 2018 SDOH Screening Reminder: Annually for all adults ([facility]) 2018 Tobacco Smoking Cessation: i n Adults excluding Women: Behavioral and Pharmacotherapy Interventions ([facility]) 2018 Cervical Cancer Screenin-65 yrs of age (or Modifier) 2021 Cervical Cancer Screening: Pap every 3 yrs pts age 21-65 2021 Cervical Cancer: Pap Screening with Modifier timing ([facility]) 2021 Cervical Cancer: hrHPV alone or with cotesting Pap for Pts 30-65yrs screening every 5yrs ([facility]) 2021 DTaP/Tdap/Td Vaccines ([facility]) (7 - Td or Tdap) 12/08/2021 12/09/2011, 07/08/2004, 12/11/2001, Additional history exists COVID-19 Vaccine Screening: Initial Series and Booster Status ([facility]) (2023- season) 2024 Flu Vaccination: Yearly for ages 18mos through 64 years (or Modifier)([facility]) 01/11/2025 Zoster/Shingles Vaccine Series Screening: Adults aged 18+ yrs (or HM Modifiers)([facility]) (1 of 2) 2050 09/26/2007, 06/15/2001 Pneumococcal Vaccination Screening: Pts 0-19 & 19-49 yrs of age ([facility]) Aged Out 01/24/2001, 2000, 2000 No longer eligible based on patient's age to complete this topic Medical Devices Not on file Insurance [facility] Care Teams Dumper Relationship Specialty Start Date End Date Pcp, No PCP - General Family Medicine 06/30/21
== END 2024-11-13 09:01 | disposition home or self-care (01) ==
PROVIDERS: PCP Internal Medicine; Visit Provider Internal Medicine
DX: E03.9 Hypothyroidism, unspecified (principal)

== ENCOUNTER → 2024-11-13 07:57 | Outpatient (BNVA) | payer OTHER, SELFPAY | PROVIDERS: PCP Internal Medicine; Visit Provider Internal Medicine ==

== ENCOUNTER 2024-12-27 09:34 | Outpatient (AMB) | payer OTHER, SELFPAY ==
--- NOTE | 2024-12-27 09:42 | A.OFFPC_ITS ---
Vital Signs 12/27/24 09:43 Height 5 ft 5 in Weight 162 lb BMI 27.0 BP 110/70 Blood Pressure Location Lt brachial Position Sitting Respiration 16 Pulse 82 Pulse Source Pulse Oximeter Temp 98.2 F Temp Source Oral Pulse Oximetry (%) 99 Oxygen Delivery Method Room Air Intake Visit Reasons: Annual PE Intake Note: Pt is here today for her PE: last papsmear 10/05/24 Is last menstrual period known: Yes Last menstrual period: 12/12/24 Allergies No Known Allergies Allergy (Verified 12/27/24 09:52) Medication List - Last Reconciled 12/27/24 by Jess Bennett MD etonogestrel-ethinyl estradiol 0.12-0.015 mg/24 hr (NuvaRing) 1 vag ring vaginal Q4W 3 weeks levothyroxine 50 mcg PO DAILY Tobacco use date assessed: 12/27/24 Dental Screening Dental Screen Date: 12/27/24 Did you have a dental visit in the last 12 months?: Yes Did you have a dental problem in the last 6 months where you did not have access to dental care?: No Was dental information given to patient?: Patient has dentist HPI Annual PE HPI Details 44-year-old lady here today for her phys ical exam. She has hypothyroidism currently stable controlled on levothyroxine 50 mcg once a day. Currently sees OBGYN, uses NuvaRing for control, last Pap was done earlier this year with normal findings. Has been feeling well with no complaints at present time [facility] Medical History (Updated 12/27/24 @ 10:09 by Jess Bennett MD) Hypothyroidism Constipation LGSIL on Pap smear of cervix Dysmenorrhea in adolescent Surgical History No pertinent past surgical history Family History Father HTN (hypertension) Diabetes mellitus Substance use disorder Mental health disorder Mother Breast cancer, Onset Age: 43 H/O mastectomy History of chemotherapy Brother Medical history non-contributory Social History (Updated 12/27/24 @ 09:58 by Jess Bennett MD) Household Members: Spouse and Family Housing: House Alcohol intake: current Alcohol intake frequency: holidays/special occasions only Patient Tobacco Use Status: Never used Tobacco e-Cigarette/Vaping Use: Never Used service: No Current occupational status: employed 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 1. Little interest or pleasure in doing things: not at all 2. Feeling down, depressed, or hopeless: not at all 3. Trouble falling or staying asleep, or sleeping too much: not at all 4. Feeling tired or having little energy: not at all 5. Poor appetite or overeating: not at all 6. Feeling bad about yourself - or that you are a failure or have let yourself or your family down: not at all 7. Trouble concentrating on things, such as reading the newspaper or watching television: not at all 8. Moving or speaking so slowly that other people could have noticed. Or the opposite - being so fidgety or restless that you have been moving around a lot more than usual: not at all 9. Thoughts that you would be better off or of hurting yourself in some way: not at all Total score: 0 Depression Screening Interpretation: Negative Depression Screening Done: Yes 57228 - PHQ-9 Billing: Yes Source: Developed by Drs. Zeke Zimmer, Yeni Tello, Campos Travis and colleagues, with an educational kvng from [employer]. Thrive Questionnaire Date Thrive assessed: 12/25/24 I am a: Patient What is your living situation today?: I have a steady place to live Within the past 12 months, did the food you bought not last and you didn't have the money to get more?: Never true Within the past 12 months, did you worry whether your food would run out before you got money to buy more?: Never true Do you have trouble paying for medicines?: No Do you have trouble getting transportation to medical appointments?: No Do you have trouble paying your heating and electricity bill?: No Do you have trouble taking care of your child, family member or friend?: No Do you have trouble with day-to-day activities such as bathing, preparing meals, shopping, managing finances, etc.?: No Are you currently unemployed and looking for a job?: No Are you interested in more education?: No Please select the resources that you would like help with: None Currently or been in a relationship where the following occur: No concerns reported THRIVE Score: 0 AUDIT C Alcohol Use Questionnaire (AUDIT-C) 1. How often do you have a drink containing alcohol?: Monthly or less Total Score: 1 AMY-7 AMB Questionnaire AMY-7 Date AMY - 7 assessed: 09/07/24 Feeling nervous, anxious, or on edge: 0 = Not at all Not being able to stop or control worryin = Not at all Worrying too much about different things: 0 = Not at all Trouble relaxin = Not at all Being so restless that it is hard to sit still: 0 = Not at all Becoming easily annoyed or irritable: 0 = Not at all Feeling afraid as if something awful might happen: 0 = Not at all Total AMY-7 score (0-4 normal; 5-9 mild; 10-14 moderate; 15-21 severe): 0 Source: Developed by Drs. Zeke Zimmer, Yeni Tello, Campos Travis and colleagues, with an educational kvng from [employer]. AMY-7 Assessment Billing AMY-7 Assessment Tool: AYM-7 Assessment 55099 Review of Systems Const Denies body aches, Denies fatigue, Denies fever(s), Denies headache(s) and Denies weakness Eyes Details: Has myopia, sees [facility] eye [facility], wears contact lenses Denies change in vision ENT Denies dizziness, Denies headache(s), Denies nasal congestion, Denies nasal discharge and Denies sore throat Card Denies chest pain, Denies lightheadedness, Denies palpitations and Denies dyspnea Resp Denies chest congestion, Denies cough, Denies dyspnea and Denies wheezing GI Denies abdominal pain, Denies change in bowel habits and Denies heartburn Denies hematuria, Denies urinary frequency, Denies dysuria and Denies urinary urgency Musc Reports no additional complaints Skin/Breast Denies breast pain, Denies breast mass, Denies lesions and Denies rash Neuro Denies dizziness, Denies headache(s) and Denies weakness Psych Reports no additional complaints Endo Denies fatigue, Denies polydipsia, Denies polyuria and Denies palpitations Ryder/Lymph Denies easy bruising Aller/Immun Denies seasonal rhinorrhea and Denies wheezing Physical exam (Primary Care) Vital Signs: Last Vital Signs Temp 98.2 F 12/27/24 09:43 Pulse 82 12/27/24 09:43 Resp 16 12/27/24 09:43 BP 110/70 12/27/24 09:43 Pulse Ox 99 12/27/24 09:43 Oxygen Delivery Method Room Air 12/27/24 09:43 BMI result Body Mass Index 27.0 Tobacco/Smoking Status: Tobacco use Status Tobacco use date assessed 12/27/24 12/27/24 09:46 Patient Tobacco Use Status Never used Tobacco 12/27/24 09:46 e-Cigarette/Vaping Use Never Used 12/27/24 09:46 PHQ-9: PHQ-9 Score PHQ-9: Total score 0 12/27/24 09:55 Depression Screening Interpretation: Negative Thrive Assessment: Date of Thrive Assessment Date Thrive assessed 12/25/24 12/27/24 09:46 Currently or been in a relationship where the following occur: No concerns reported Const General: comfortable, no acute distress, alert, awake and Physically active Nutritional Appearance: average body habitus Orientation/consciousness: patient oriented x3 HENMT Head: Yes normal to inspection Ears: external ears normal General nose exam: Normal external nose present Face and sinus: Yes face symmetric Mouth: Normal oral and palatal mucosa present and moist mucous membranes Eyes General: appearance normal, both eyes and all related structures Neck Neck: Yes full ROM, Yes no lymphadenopathy and Yes supple Thyroid: Thyroid normal (Nonpalpable) Chest Breast/axilla palpation: normal palpation of the breasts Resp Effort & Inspection: normal respiratory effort and able to speak in complete sentences Auscultation: clear to auscultation bilaterally Cardio Palpation: normal PMI Rate: regular rate Rhythm: regular rhythm Heart sounds: S1 normal heart sound present and S2 normal heart sound present Peripheral pulses: Peripheral pulses 2+ throughout GI Inspection: Yes normal to inspection Palpation (GI): Soft to palpation, nontender, no guarding and no masses Auscultation: normal bowel sounds Other: Follow[place] [facility], up-to-date with her cervical cancer screening and pelvic exam General: Yes no CVA tenderness and Yes deferred Back/Spine/Pelvis Back: no CVA tenderness and No back tenderness Skin General skin exam: no rashes or lesions noted Neuro General: patient oriented x3, gait normal, tone normal, moves all extremities, Normal light touch and pain sensation and CN's II-XI intact bilaterally Extrem General: Yes normal to inspection, Yes full ROM, Yes no joint enlargement, Yes no pedal edema, Yes no calf tenderness and Yes normal gait Psych Appearance: grossly normal Mental Status: mental status grossly normal Speech and movement: Normal speech and movement present Affect: normal affect Attitude: cooperative Thought process: Normal thought process present Thought content: Normal thought content present Results Reviewed Results Reviewed: Laboratory Tests 10/29/24 08:05 TSH 5.18 H Free T4 1.04 Coding Level of Care Code Est Pt Prev Care 18-39y(90981) Diagnoses Annual visit for general adult medical examination with abnormal findings Z00. Advanced directives, counseling/discussion Z71.89 Acquired hypothyroidism E03.9 Hypothyroidism type: acquired Additional Codes AMY-7 Assessment Billing - AMY-7 Assessment Tool: AMY-7 Assessment 71774 ([id number]) PHQ-9 - 62594 - PHQ-9 Billing: Yes ([id number]) Assessment & Plan Assessment & Plan (1) Annual visit for general adult medical examination with abnormal findings: Code(s): Z00.01 - Encounter for general adult medical examination with abnormal findings Plan: Reviewed fasting lab results from May 2024 and recent thyroid levels which has showed improvement, patient feels better on current dose of levothyroxine. Continue regular dental visit every 6 months and regular [facility] exams, [facility] 2 [facility] Take adequate calcium in diet and vitamin-D 3 at 2000 IU per cap once a day, in addition to weight-bearing exercises to help maintain good muscle tone and weight control. Instructed to do self-breast exam, and recommended to get yearly mammogram, starting at age 40. Patient states she is up-to-date with her Tdap,, reminded to get her yearly flu shot, (2) Advanced directives, counseling/discussion: Code(s): Z71.89 - Other specified counseling Plan: Initiated the conversation about Advanced Directives. Advanced Directives help patients prepare for current and future decisions about their medical treatment and place of care. Discussed with patient that it is a process where a patients current condition and prognosis are reviewed, their wishes for information regarding their illness are elicited, and likely medical dilemmas are presented and options discussed. Healthcare proxy form completed today. The form can be amended as needed, reviewed yearly and make changes as needed (3) Hypothyroidism: Code(s): E03.9 - Hypothyroidism, unspecified Category: Medical Qualifiers: Hypothyroidism type: acquired Qualified Code(s): E03.9 - Hypothyroidism, unspecified Plan: Last thyroid levels are showed improvement in TSH level, patient states that she feels better on current dose of levothyroxine 50 mcg daily will continue will follow-up in a year Orders: Orders Thyroid Stimulating Hormone 1 Year E03.9 - Hypothyroidism, unspecified, Z13.1 - Encounter for screening for diabetes mellitus, Z13.220 - Encounter for screening for lipoid disorders Basic Metabolic Panel Fasting 1 Year E03.9 - Hypothyroidism, unspecified, Z13.1 - Encounter for screening for diabetes mellitus, Z13.220 - Encounter for screening for lipoid disorders Thyroid Peroxidase Antibodies 1 Year E03.9 - Hypothyroidism, unspecified, Z13.1 - Encounter for screening for diabetes mellitus, Z13.220 - Encounter for screening for lipoid disorders Lipid Panel 1 Year E03.9 - Hypothyroidism, unspecified, Z13.1 - Encounter for screening for diabetes mellitus, Z13.220 - Encounter for screening for lipoid disorders Free T4 (Free Thyroxine) 1 Year E03.9 - Hypothyroidism, unspecified, Z13.1 - Encounter for screening for diabetes mellitus, Z13.220 - Encounter for screening for lipoid disorders Vitamin D 25-OH Total 1 Year E03.9 - Hypothyroidism, unspecified, Z13.1 - Encounter for screening for diabetes mellitus, Z13.220 - Encounter for screening for lipoid disorders
[2024-12-27 09:43] VITALS: BP 110/70; PULSE 82; RESP 16; TEMP 36.8; O2SAT 99; BMI 27.0
== END 2024-12-27 10:07 | disposition home or self-care (01) ==
LOC: HO.HMCC 09:35
PROVIDERS: PCP Internal Medicine; Visit Provider Internal Medicine
DX: Z00.01 Encounter for general adult medical examination with abnormal findings (principal); Z71.89 Other specified counseling; E03.9 Hypothyroidism, unspecified

== ENCOUNTER → 2024-12-27 09:34 | Outpatient (BNVA) | payer OTHER, SELFPAY | PROVIDERS: PCP Internal Medicine; Visit Provider Internal Medicine | DX: Z00.01 Encounter for general adult medical examination with abnormal findings (principal); E03.9 Hypothyroidism, unspecified; Z79.899 Other long term (current) drug therapy; Z71.89 Other specified counseling; Z13.31 Encounter for screening for depression | CPT/HCPCS: 96127 ==

== ENCOUNTER 2025-02-09 09:03 | Outpatient (REF) | payer OTHER, SELFPAY ==
--- OUTSIDE RECORDS SUMMARY | 2025-02-09 09:06 | XMS_ITS | Clinical Summary ---
Author Organization [facility] [employer] [facility] lin Address [address] [facility] [place] [address] Care Team Providers Care Song And Dance Performer Name Role Phone Pcp, No Primary Care Provider [phone] Social History Tobacco Use Types Packs/Day Years [...] Adults 18 yrs or above (or HM Modifier)([facility]) 2018 Hepatitis C Virus Infection in Adolescents and Adults: Screening (or Modifier) ([facility]) 2018 SDOH Screening Reminder: Annually for all adults ([facility]) 2018 Tobacco Smoking Cessation: i n Adults excluding Women: Behavioral and Pharmacotherapy Interventions ([facility]) 2018 Cervical Cancer Screenin-65 yrs of age (or Modifier) 2021 Cervical Cancer Screening: Pap every 3 yrs pts age 21-65 2021 Cervical Cancer: Pap Screening with Modifier timing ([facility]) 2021 Cervical Cancer: hrHPV alone or with cotesting Pap for Pts 30-65yrs screening every 5yrs ([facility]) 2021 DTaP/Tdap/Td Vaccines ([facility]) (7 - Td or Tdap) 12/08/2021 12/09/2011, 07/08/2004, 12/11/2001, Additional history exists Flu Vaccination: Yearly for ages 18mos through 64 years (or Modifier)([facility]) 01/11/2025 Zoster/Shingles Vaccine Series Screening: Adults aged 18+ yrs (or HM Modifiers)([facility]) (1 of 2) 2050 09/26/2007, 06/15/2001 Pneumococcal Vaccination Screening: Pts 0-19 & 19-49 yrs of age ([facility]) Aged Out 01/24/2001, 2000, 2000 No longer eligible based on patient's age to complete this topic Medical Devices Not on file Insurance [facility] Care Teams Song And Dance Performer Relationship Specialty Start Date End Date Pcp, Stephanie PCP - General Family Medicine 06/30/21
[2025-02-09 11:50] LABS: Free T4 (Free Thyroxine) 1.17 ng/dL (0.71-1.85); Thyroid Stimulating Hormone 0.51 uIU/mL (0.32-4.0)
== END 2025-02-09 09:04 | disposition home or self-care (01) ==
LOC: HO.HMGCLDS 09:03
PROVIDERS: PCP Internal Medicine; Visit Provider Internal Medicine
DX: Z13.220 Encounter for screening for lipoid disorders (principal); Z13.1 Encounter for screening for diabetes mellitus; E03.9 Hypothyroidism, unspecified
CPT/HCPCS: 36415; 84439; 84443; 86376

== ENCOUNTER 2025-02-15 08:07 | Outpatient (AMB) | payer OTHER, SELFPAY ==
--- NOTE | 2025-02-15 08:04 | A.OFFPC_ITS ---
Intake Visit Reasons: 3m thyroid follow up Allergies No Known Allergies Allergy (Verified 02/15/25 08:19) Medication List - Last Reconciled 02/15/25 by Jess Bennett MD levothyroxine 50 mcg PO DAILY Tobacco use date assessed: 02/15/25 Dental Screening Dental Screen Date: 12/27/24 HPI 3m thyroid follow up HPI Details 2 Year old lady with hypothyroidism, her e today for follow-up after a recent dose increase in her levothyroxine to 50 mcg daily. Patient states that the rash which consists of itchy, peeling skin on the palm of both hands has improved with the higher dose and application of Aveeno cream and occasional cortisone 10 cream. She feels better on this current dose, with bowel movements becoming regular, and no fatigue issues. Was having occasional episodes of palpitations, which resolved after she stopped using her NuvaRing. Has only been using condoms as needed for contraception PFSH Medical History Hypothyroidism Constipation LGSIL on Pap smear of cervix Dysmenorrhea in adolescent Surgical History No pertinent past surgical history Family History Father HTN (hypertension) Diabetes mellitus Substance use disorder Mental health disorder Mother Breast cancer, Onset Age: 43 H/O mastectomy History of chemotherapy Brother Medical history non-contributory Social History Household Members: Spouse and Family Housing: House Alcohol intake: current Alcohol intake frequency: holidays/special occasions only Patient Tobacco Use Status: Never used Tobacco e-Cigarette/Vaping Use: Never Used service: No Current occupational status: employed 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 Sexual orientation: Straight/Heterosexual Gender identity: Female Cognitive needs: No Hearing needs: No Vision needs: Yes Female Reproductive History Menstrual Age of Menarche: 11 Questionnaire Thrive Questionnaire Date Thrive assessed: 12/25/24 I am a: Patient What is your living situation today?: I have a steady place to live Within the past 12 months, did the food you bought not last and you didn't have the money to get more?: Never true Within the past 12 months, did you worry whether your food would run out before you got money to buy more?: Never true Do you have trouble paying for medicines?: No Do you have trouble getting transportation to medical appointments?: No Do you have trouble paying your heating and electricity bill?: No Do you have trouble taking care of your child, family member or friend?: No Do you have trouble with day-to-day activities such as bathing, preparing meals, shopping, managing finances, etc.?: No Are you currently unemployed and looking for a job?: No Are you interested in more education?: No Please select the resources that you would like help with: None Currently or been in a relationship where the following occur: No concerns reported THRIVE Score: 0 AMY-7 AMB Questionnaire AMY-7 Date AMY - 7 assessed: 09/07/24 Source: Developed by Drs. Zeke Zimmer, Yeni Tello, Campos Travis and colleagues, with an educational kvng from [employer]. Review of Systems Const Denies body aches, Denies fatigue, Denies fever(s), Denies headache(s) and Denies weakness Eyes Details: Has myopia, sees [facility] eye care, wears contact lenses Denies change in vision ENT Denies dizziness, Denies headache(s) and Denies nasal congestion Card Denies chest pain, Denies lightheadedness and Denies dyspnea Resp Denies chest congestion, Denies cough and Denies dyspnea GI Denies abdominal pain, Denies change in bowel habits and Denies heartburn Denies hematuria, Denies urinary frequency, Denies dysuria and Denies urinary urgency Musc Reports no additional complaints Skin/Breast Reports as per HPI Neuro Denies dizziness, Denies headache(s) and Denies weakness Psych Reports no additional complaints Endo Denies fatigue, Denies polydipsia and Denies polyuria Ryder/Lymph Denies easy bruising Aller/Immun Denies seasonal rhinorrhea Physical exam (Primary Care) Tobacco/Smoking Status: Tobacco use Status Tobacco use date assessed 02/15/25 02/15/25 08:06 Patient Tobacco Use Status Never used Tobacco 02/15/25 08:06 e-Cigarette/Vaping Use Never Used 02/15/25 08:06 Thrive Assessment: Date of Thrive Assessment Date Thrive assessed 12/25/24 02/15/25 08:06 Currently or been in a relationship where the following occur: No concerns reported Telehealth Telehealth Telehealth Platform: [employer] Location of provider rendering services: practice address Location of patient: address on file Patient Identification confirmed using: Name, : Yes Telehealth method: video Patient verbally consented to treatment: Yes Patient verbally consented to billing insurance company: Yes Patient informed of any privacy concerns related to visit: Yes Minutes spent on Phone/Video with Pt.: 15 Results Reviewed Results Reviewed: Name: Emilie Spangler Age/Sex: 24/F : 2000 Unit#: [id number] Attend Dr: Jess Bennett MD Re02/09/25 Status: DEP REF Location: [facility] Disch: SPEC : [id number] CHAYA: 02/09/25 STATUS: COMP REQ : [id number] RECD: 02/09/[address]: Jess Bennett MD COMP: 02/09/25 ENTERED: 02/09/[address]: ORDERED: Free T4, TSH Test Result Flag Reference Free T4 1.17 0.71-1.85 ng/dL TSH 3rd Gen. 0.51 0.32-4.0 uIU/mL TSH 3rd Generation ([facility]) Coding Level of Care Code Tele Est Pt Level 4 (39361) Diagnoses Acquired hypothyroidism E03.9 Hypothyroidism type: acquired Eczema of hand L30.9 Assessment & Plan Assessment & Plan (1) Hypothyroidism: Code(s): E03.9 - Hypothyroidism, unspecified Category: Medical Qualifiers: Hypothyroidism type: acquired Qualified Code(s): E03.9 - Hypothyroidism, unspecified Plan: Will continue on current dose of levothyroxine 50 mcg daily. Will see her back for follow-up in six-months, advised to get repeat thyroid levels drawn prior to appointment. (2) Eczema of hand: Code(s): L30.9 - Dermatitis, unspecified Category: Medical Plan: Continue use of cortisone 10 cream combined with Cetaphil cream applied to affected area on hand twice a day for at least 10 days at a time Orders: Orders Thyroid Stimulating Hormone 08/10/25 E03.9 - Hypothyroidism, unspecified Triiodothyronine T3 Free 08/10/25 E03.9 - Hypothyroidism, unspecified Free T4 (Free Thyroxine) 08/10/25 E03.9 - Hypothyroidism, unspecified
--- OUTSIDE RECORDS SUMMARY | 2025-02-15 08:17 | XMS_ITS | Clinical Summary ---
Author Organization [facility] [employer] [facility] lin Address [address] [facility] [place] [place] [address] Care Team Providers Care Exhauster Engineer Name Role Phone Pcp, No Primary Care Provider [phone] Social History Tobacco Use Types Packs/Day Years [...] 5yrs ([facility]) 2021 DTaP/Tdap/Td Vaccines ([facility]) (7 - Td or Tdap) 12/08/2021 [...] Devices Not on file Insurance [facility] Care Teams Exhauster Engineer Relationship Specialty Start Date End Date Pcp, Stephanie PCP - General Family Medicine 06/30/21
== END 2025-02-15 08:52 | disposition home or self-care (01) ==
LOC: HO.HMCC 08:07
PROVIDERS: PCP Internal Medicine; Visit Provider Internal Medicine
DX: E03.9 Hypothyroidism, unspecified (principal); L30.9 Dermatitis, unspecified

== ENCOUNTER 2025-05-25 09:23 | Outpatient (REF) | payer OTHER, SELFPAY ==
--- OUTSIDE RECORDS SUMMARY | 2025-05-25 09:28 | XMS_ITS | Clinical Summary ---
Author Organization [employer] & [facility] lin Address [address] [facility] [place] [address] Care Team Providers Care Manager Sales And Marketing Name Role Phone Pcp, No Primary Care Provider [phone] Social History Tobacco Use Types Packs/Day Years Used Date Smoking Tobacco: Never Assessed Comments Unknown Sex and Gender Information Value Date Recorded Sex Assigned at Not on file Legal Sex Female 9:24 PM EST Gender Identity Not on file Sexual Orientation Not on file Plan of Treatment Not on file Medical Devices Not on file Insurance [facility] Care Teams Manager Sales And Marketing Relationship Specialty Start Date End Date Pcp, Stephanie PCP - General Family Medicine 06/30/21
[2025-05-25 12:14] LABS: Free T4 (Free Thyroxine) 1.02 ng/dL (0.71-1.85); Thyroid Stimulating Hormone 3.90 uIU/mL (0.32-4.0)
== END 2025-05-25 09:24 | disposition home or self-care (01) ==
LOC: HO.HMGCLDS 09:23
PROVIDERS: PCP Internal Medicine; Visit Provider Internal Medicine
DX: E03.9 Hypothyroidism, unspecified (principal); Z01.84 Encounter for antibody response examination
CPT/HCPCS: 36415; 84439; 84443; 84481; 86376

== ENCOUNTER 2025-05-27 14:36 | Outpatient (AMB) | payer OTHER, SELFPAY ==
[2025-05-27 14:56] VITALS: BP 110/64; PULSE 91; RESP 16; TEMP 37; O2SAT 100; BMI 27.5
--- NOTE | 2025-05-27 14:56 | A.OFFPC_ITS ---
Vital Signs 05/27/25 14:56 Height 5 ft 5 in Weight 165 lb BMI 27.5 BP 110/64 Blood Pressure Location Rt brachial Position Sitting Respiration 16 Pulse 91 Pulse Source Pulse Oximeter Temp 98.6 F Temp Source Oral Pulse Oximetry (%) 100 Oxygen Delivery Method Room Air Intake Visit Reasons: f/u thyroid labs Intake Note: Pt is here today to f/u thyriod lab results Tractor Operator Laser Leveling Required: No Allergies No Known Allergies Allergy (Verified 05/27/25 15:27) Medication List - Last Reconciled 05/27/25 by Jess Bennett MD levothyroxine (Levoxyl) 75 mcg PO DAILY Tobacco use date assessed: 12/27/24 Dental Screening Dental Screen Date: 05/27/25 Did you have a dental visit in the last 12 months?: Yes Did you have a dental problem in the last 6 months where you did not have access to dental care?: No Was dental information given to patient?: Patient has dentist HPI HPI Comments History of Present Illness Details The patient is a 24 year old female [facility], presenting for a follow- up. She reports having less brain fog, but has experienced increased fatigue, constipation, abdominal bloating and still having dry skin mainly in her palms. Her recent TSH level was 3.9, a decrease from a prior level of 1.17, with lower free T4 levels as compared to last check. [facility] Medical History (Updated 05/27/25 @ 15:34 by Jess Bennett MD) Constipation Hypothyroidism LGSIL on Pap smear of cervix Dysmenorrhea in adolescent Surgical History No pertinent past surgical history Family History Father HTN (hypertension) Diabetes mellitus Substance use disorder Mental health disorder Mother Breast cancer, Onset Age: 43 H/O mastectomy History of chemotherapy Brother Medical history non-contributory Social History Household Members: Spouse and Family Housing: House Alcohol intake: current Alcohol intake frequency: holidays/special occasions only Patient Tobacco Use Status: Never used Tobacco e-Cigarette/Vaping Use: Never Used service: No Current occupational status: employed 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 Depression Screening Interpretation: Negative Depression Screening Done: Yes Source: Developed by Drs. Zeke Zimmer, Yeni Tello, Campos Travis and colleagues, with an educational kvng from [employer]. Thrive Questionnaire Date Thrive assessed: 12/25/24 I am a: Patient What is your living situation today?: I have a steady place to live Within the past 12 months, did the food you bought not last and you didn't have the money to get more?: Never true Within the past 12 months, did you worry whether your food would run out before you got money to buy more?: Never true Do you have trouble paying for medicines?: No Do you have trouble getting transportation to medical appointments?: No Do you have trouble paying your heating and electricity bill?: No Do you have trouble taking care of your child, family member or friend?: No Do you have trouble with day-to-day activities such as bathing, preparing meals, shopping, managing finances, etc.?: No Are you currently unemployed and looking for a job?: No Are you interested in more education?: No Please select the resources that you would like help with: None Currently or been in a relationship where the following occur: No concerns reported THRIVE Score: 0 AUDIT C Alcohol Use Questionnaire (AUDIT-C) 1. How often do you have a drink containing alcohol?: Monthly or less Total Score: 1 AMY-7 AMB Questionnaire AMY-7 Date AMY - 7 assessed: 09/07/24 Source: Developed by Drs. Zeke Zimmer, Yeni Tello, Campos Travis and colleagues, with an educational kvng from [employer]. Review of Systems Narrative Constitution Reports no additional complaints Eyes no change in vision ENT Reports no additional complaints, Denies dysphagia and Denies odynophagia Cardiology Reports no additional complaints Respiratory Reports no additional complaints GI as per HPI Reports no additional complaints Muscular no additional complaints Skin/Breast as per HPI Neurology Reports no additional complaints, Denies Abnormal speech present and Denies Sensory deficit (Neuro) Psychiatry Reports no additional complaints Endocrine Reports no additional complaints Ryder/Lymph Reports no additional complaints Aller/Immun Reports no additional complaints Physical exam (Primary Care) Vital Signs: Last Vital Signs Temp 98.6 F 05/27/25 14:56 Pulse 91 05/27/25 14:56 Resp 16 05/27/25 14:56 BP 110/64 05/27/25 14:56 Pulse Ox 100 05/27/25 14:56 Oxygen Delivery Method Room Air 05/27/25 14:56 BMI result Body Mass Index 27.5 Tobacco/Smoking Status: Tobacco use Status Tobacco use date assessed 12/27/24 05/27/25 15:00 Patient Tobacco Use Status Never used Tobacco 05/27/25 15:00 e-Cigarette/Vaping Use Never Used 05/27/25 15:00 Depression Screening Interpretation: Negative Thrive Assessment: Date of Thrive Assessment Date Thrive assessed 12/25/24 05/27/25 15:00 Currently or been in a relationship where the following occur: No concerns reported Const General: comfortable and alert Nutritional Appearance: average body habitus Orientation/consciousness: patient oriented x3 Eyes General: appearance normal, both eyes and all related structures Neck Neck: Yes full ROM, Yes no lymphadenopathy and Yes supple Thyroid: Thyroid normal (Nonpalpable) Resp Effort & Inspection: normal respiratory effort and able to speak in complete sentences Auscultation: clear to auscultation bilaterally Cardio Palpation: normal PMI Rate: regular rate Rhythm: regular rhythm Heart sounds: S1 normal heart sound present and S2 normal heart sound present GI Palpation (GI): Soft to palpation, nontender, no guarding and no masses Auscultation: normal bowel sounds Other: Followed at [facility], up-to-date with her cervical cancer screening and pelvic exam Skin Other: Dry erythematous patch on palms of both hands Neuro General: patient oriented x3, gait normal, tone normal and moves all extremities Extrem General: Yes normal to inspection, Yes full ROM, Yes no joint enlargement, Yes no pedal edema and Yes normal gait Psych Appearance: grossly normal Mental Status: mental status grossly normal Speech and movement: Normal speech and movement present Affect: normal affect Results Reviewed Results Reviewed: Laboratory Tests 05/25/25 09:40 TSH 3.90 Free T4 1.02 Free T3 3.0 Coding Level of Care Code Est Pt Level 4 (82345) Diagnoses Acquired hypothyroidism E03.9 Hypothyroidism type: acquired Constipation, unspecified constipation type K59.00 Constipation type: unspecified constipation type Eczema of hand L30.9 Assessment & Plan Assessment & Plan (1) Hypothyroidism: Code(s): E03.9 - Hypothyroidism, unspecified Category: Medical Qualifiers: Hypothyroidism type: acquired Qualified Code(s): E03.9 - Hypothyroidism, unspecified (2) Constipation: Code(s): K59.00 - Constipation, unspecified Category: Medical Qualifiers: Constipation type: unspecified constipation type Qualified Code(s): K59.00 - Constipation, unspecified (3) Eczema of hand: Code(s): L30.9 - Dermatitis, unspecified Category: Medical Plan Recent labs show her TSH has decreased to 3.9 from 1.17. With mentation improving but still reports increasing fatigue and constipation on current dose of levothyroxine at 50 mcg daily. She has been taking it as directed an hour before breakfast and which has a glass of water. Will increase her levothyroxine dose to 75 mcg per tablet taken once a day in a.m. an hour before breakfast and with a full glass of water. Advised to increase dietary fiber intake, repeat another thyroid level and thyroid peroxidase level in 3 months Patient was informed and verbally consented to the use of an ambient scribe for clinic note documentation during this visit. Orders: Orders Thyroid Stimulating Hormone 3 Months E03.9 - Hypothyroidism, unspecified Triiodothyronine T3 Free 3 Months E03.9 - Hypothyroidism, unspecified Thyroid Peroxidase Antibodies 3 Months E03.9 - Hypothyroidism, unspecified Free T4 (Free Thyroxine) 3 Months E03.9 - Hypothyroidism, unspecified Medications: New levothyroxine (Levoxyl) 75 mcg PO DAILY 90 tabs 1RF Discontinued levothyroxine Discontinued Reason: Doctor's Order 50 mcg PO DAILY 90 tabs 1RF E03.9 - Hypothyroidism, unspecified
--- OUTSIDE RECORDS SUMMARY | 2025-05-27 21:07 | XMS_ITS | Clinical Summary ---
Author Organization [employer] & [facility] lin Address [address] [facility] [place] [address] Care Team Providers Care Sales And Service Representative Name Role Phone Pcp, No Primary Care Provider [phone] Social History Tobacco Use Types Packs/Day Years Used Date Smoking Tobacco: Never Assessed Comments Unknown Sex and Gender Information Value Date Recorded Sex Assigned at Not on file Legal Sex Female 9:24 PM EST Gender Identity Not on file Sexual Orientation Not on file Plan of Treatment Not on file Medical Devices Not on file Insurance [facility] Care Teams Sales And Service Representative Relationship Specialty Start Date End Date Pcp, Stephanie PCP - General Family Medicine 06/30/21
== END 2025-05-27 16:36 | disposition home or self-care (01) ==
LOC: HO.HMCC 14:37
PROVIDERS: PCP Internal Medicine; Visit Provider Internal Medicine
DX: E03.9 Hypothyroidism, unspecified (principal); K59.00 Constipation, unspecified; L30.9 Dermatitis, unspecified